=== PATIENT | male | born 1955 | race Caucasian/White ===

== ENCOUNTER 2018-08-20 05:06 | Inpatient (IN) | payer MEDICAID, OTHER ==
[~2018-08-20] VITALS: Ht 185.4 cm; Wt 89.5 kg
[2018-08-20] MEDS ORDERED: ESZO2 PO (05:45)
[2018-08-20] MEDS ORDERED: GABA-529 PO (05:47)
[2018-08-20 05:57] LABS: EOSINOPHILS % (AUTO) 0.8 % (1.0-6.0); HEMATOCRIT 46.9 % (41-53); HEMOGLOBIN 16.1 g/dL (13.5-17.5); LYMPHOCYTES # (AUTO) 0.9 K/uL (1.0-4.8); LYMPHOCYTES % (AUTO) 15.1 % (22.0-44.0); MEAN CORPUSCULAR HGB CONC 34.3 G/dL (31.0-37.0); MEAN CORPUSCULAR VOLUME 93 fL (80-100); MONOCYTES # (AUTO) 0.6 K/uL (0.1-1.0); MONOCYTES % (AUTO) 10.5 % (2.0-9.0); NEUTROPHILS # (AUTO) 4.5 K/uL (1.8-7.7); NEUTROPHILS % (AUTO) 72.6 % (40.0-70.0); PLATELET COUNT (AUTO) 283 K/uL (150-450); RED BLOOD CELL COUNT(AUTO) 5.03 MIL/uL (4.50-5.90); RED CELL DISTRIBUTION WIDTH 13.5 % (11.5-14.5)
[2018-08-20 06:03] LABS: ANION GAP 12 mmol/L (8-16); CALCIUM, TOTAL 9.3 mg/dL (8.8-10.5); CARBON DIOXIDE 24 mmol/L (22-29); CHLORIDE 105 mmol/L (98-107); CREATININE 1.21 mg/dL (0.60-1.30); GLOMERULAR FILTR. RATE CALC > 60 mL/min (>60); GLUCOSE,RANDOM 101 mg/dL (70-110); POTASSIUM 3.9 mmol/L (3.5-5.1); SODIUM SERUM 141 mmol/L (136-145); UREA NITROGEN, BLOOD 16 mg/dL (7-18)
[2018-08-20 06:09] LABS: ALANINE AMINOTRANSFERASE 34 U/L (12-78); ALBUMIN 4.3 g/dL (3.4-5.0); ALKALINE PHOSPHATASE 87 U/L (46-116); ASPARTATE AMINOTRANSFERASE 22 U/L (15-37); BILIRUBIN,TOTAL 0.6 mg/dL (0.1-1.0); TOTAL PROTEIN, SERUM 7.6 g/dL (6.4-8.2)
[2018-08-20 07:15] LABS: AMPHET/METH SCREEN,URINE NEGATIVE (NEGATIVE); BARBITURATE SCREEN, URINE NEGATIVE (NEGATIVE); BENZODIAZEPINES SCREEN,URINE NEGATIVE (NEGATIVE); CANNABINOID SCREEN,URINE NEGATIVE (NEGATIVE); COCAINE SCREEN,URINE NEGATIVE (NEGATIVE); METHADONE SCREEN, URINE NEGATIVE (NEGATIVE); OPIATE SCREEN,URINE NEGATIVE (NEGATIVE)
[2018-08-20 07:25] LABS: PHENCYCLIDINE SCREEN,URINE NEGATIVE (NEGATIVE)
[2018-08-20 10:08] VITALS: BP 146/96
[2018-08-20] MEDS ORDERED: CloNIDine HCL 0.1 MG TABLET PO PRN (12:45)
[2018-08-20 17:48] VITALS: BP 142/92
[2018-08-20] MEDS: LITHIUM CARBONATE 300 MG CAPSULE PO SCH (20:20)
[2018-08-20] MEDS: ZOLPIDEM TARTRATE 10 MG TABLET PO PRN (20:20)
[2018-08-21] MEDS: LITHIUM CARBONATE 300 MG CAPSULE PO SCH ×2 (08:45→16:59)
[2018-08-21 09:18] VITALS: BP 131/85
[2018-08-21] MEDS: RisperiDONE 1 MG TABLET PO SCH (17:57)
[2018-08-21 20:09] VITALS: BP 139/90
[2018-08-21] MEDS: ZOLPIDEM TARTRATE 10 MG TABLET PO PRN (20:39)
[2018-08-22 02:45] VITALS: BP 123/74
[2018-08-22] MEDS: RisperiDONE 1 MG TABLET PO SCH ×2 (08:09→16:01)
[2018-08-22] MEDS: LITHIUM CARBONATE 300 MG CAPSULE PO SCH ×2 (08:09→16:01)
[2018-08-22 13:17] VITALS: BP 100/77
[2018-08-22 16:49] VITALS: BP 125/82
[2018-08-22] MEDS: ZOLPIDEM TARTRATE 10 MG TABLET PO PRN (20:15)
[2018-08-23] MEDS: LORazepam 2 MG TABLET PO PRN ×3 (06:03→16:55)
[2018-08-23] MEDS: RisperiDONE 1 MG TABLET PO SCH ×2 (08:32→16:53)
[2018-08-23] MEDS: LITHIUM CARBONATE 300 MG CAPSULE PO SCH ×2 (08:32→16:53)
[2018-08-23 10:11] VITALS: BP 119/83
[2018-08-23 16:56] VITALS: BP 128/79
[2018-08-23] MEDS: ZOLPIDEM TARTRATE 10 MG TABLET PO PRN (20:20)
[2018-08-24] MEDS: LORazepam 2 MG TABLET PO PRN ×2 (04:56→12:32)
[2018-08-24] MEDS: RisperiDONE 1 MG TABLET PO SCH ×2 (08:08→16:01)
[2018-08-24] MEDS: LITHIUM CARBONATE 300 MG CAPSULE PO SCH ×2 (08:08→16:02)
[2018-08-24 08:49] VITALS: BP 137/99
[2018-08-24 16:11] VITALS: BP 106/68
[2018-08-24] MEDS: HALOPERIDOL 5 MG TABLET PO PRN (20:33)
[2018-08-24] MEDS: ZOLPIDEM TARTRATE 10 MG TABLET PO PRN (20:33)
[2018-08-25] MEDS: HALOPERIDOL 5 MG TABLET PO PRN ×2 (05:28→09:57)
[2018-08-25] MEDS: RisperiDONE 1 MG TABLET PO SCH ×2 (08:08→17:26)
[2018-08-25] MEDS: LITHIUM CARBONATE 300 MG CAPSULE PO SCH ×2 (08:08→17:27)
[2018-08-25 08:35] VITALS: BP 147/90
[2018-08-25] MEDS: ACETAMINOPHEN 325 MG TABLET PO PRN (12:52)
[2018-08-25 20:30] VITALS: BP 131/83
[2018-08-25] MEDS: ZOLPIDEM TARTRATE 10 MG TABLET PO PRN (21:13)
[2018-08-26 05:15] VITALS: BP 124/72
[2018-08-26] MEDS: IBUPROFEN 600 MG TABLET PO PRN ×3 (05:16→17:55)
[2018-08-26] MEDS: RisperiDONE 1 MG TABLET PO SCH ×2 (08:08→16:40)
[2018-08-26] MEDS: LITHIUM CARBONATE 300 MG CAPSULE PO SCH ×2 (08:08→16:40)
[2018-08-26 08:15] VITALS: BP 151/91
[2018-08-26] MEDS: ACETAMINOPHEN 325 MG TABLET PO PRN ×2 (08:15→14:33)
[2018-08-26 16:16] VITALS: BP 141/97
[2018-08-26] MEDS: HydrOXYzine PAMOATE 25 MG CAPSULE PO SCH (21:19)
[2018-08-27 00:17] VITALS: BP 134/90
[2018-08-27] MEDS: ZOLPIDEM TARTRATE 10 MG TABLET PO PRN ×2 (00:19→20:48)
[2018-08-27] MEDS: ACETAMINOPHEN 325 MG TABLET PO PRN (06:19)
[2018-08-27] MEDS: LITHIUM CARBONATE 300 MG CAPSULE PO SCH ×2 (08:04→16:00)
[2018-08-27] MEDS: RisperiDONE 1 MG TABLET PO SCH ×2 (08:04→16:00)
[2018-08-27 08:47] VITALS: BP 108/80
[2018-08-27] MEDS: IBUPROFEN 600 MG TABLET PO PRN ×3 (08:47→21:04)
[2018-08-27 15:04] VITALS: BP 139/98
[2018-08-27 17:00] VITALS: BP 129/98
[2018-08-27] MEDS: HydrOXYzine PAMOATE 25 MG CAPSULE PO SCH (20:20)
[2018-08-27 21:04] VITALS: BP 134/85
[2018-08-28] MEDS: IBUPROFEN 600 MG TABLET PO PRN (04:23)
[2018-08-28 04:24] VITALS: BP 137/93
[2018-08-28 08:18] VITALS: BP 126/85
[2018-08-28] MEDS: RisperiDONE 1 MG TABLET PO SCH (08:26)
[2018-08-28] MEDS: LITHIUM CARBONATE 300 MG CAPSULE PO SCH (08:26)
[2018-08-28] MEDS ORDERED: RISP1 PO (14:07)
[2018-08-28] MEDS ORDERED: HYDR-4031 PO (14:07)
[2018-08-28] MEDS ORDERED: LITH300C3 PO (14:07)
== END 2018-08-28 15:23 | disposition home or self-care (01) | DRG 753 ==
LOC: EMS 05:11 → 3EC 09:34
PROVIDERS: ADMIT Psychiatry & Neurology Psychiatry; ATTEND Psychiatry & Neurology Psychiatry
DX: F31.4 Bipolar disorder, current episode depressed, severe, without psychotic features (principal); R45.851 Suicidal ideations; F22 Delusional disorders; Z82.49 Family history of ischemic heart disease and other diseases of the circulatory system; R03.0 Elevated blood-pressure reading, without diagnosis of hypertension; M54.9 Dorsalgia, unspecified
CPT/HCPCS: G0480